=== PATIENT | female | born 1980 | race Caucasian/White ===

== ENCOUNTER 2019-03-14 10:38 | Emergency (ER) | payer MEDICAID ==
[~2019-03-14] VITALS: Ht 170.2 cm; Wt 100.0 kg
[2019-03-14 10:45] VITALS: BP 127/77
[2019-03-14 11:22] LABS: CLARITY,URINE CLEAR (Clear); COLOR,URINE YELLOW (Yellow); GLUCOSE, URINE NEGATIVE (Neg); KETONES,URINE NEGATIVE (Neg); LEUKOCYTE ESTERASE ,URINE NEGATIVE (Neg); NITRITES, URINE NEGATIVE (Neg); OCCULT BLOOD,URINE NEGATIVE (Neg); PH,URINE 6.5 (4.8-8.0); PROTEIN,URINE NEGATIVE (Neg); UROBILINOGEN,URINE 0.2 E.U/dL (0.2-1.0)
[2019-03-14 11:24] LABS: URINE HCG NEGATIVE (NEG)
[2019-03-14 11:27] LABS: UA COLLECTION TYPE CLN CATCH MIDSTREAM
== END 2019-03-14 12:07 | disposition home or self-care (01) ==
LOC: ER 10:42
DX: R35.0 Frequency of micturition (principal)
CPT/HCPCS: 81003; 81025; 99283